=== PATIENT | female | born 1980 | race Caucasian/White ===

== ENCOUNTER 2022-06-17 09:10 | Emergency (ER) | payer OTHER ==
[2022-06-17] MEDS ORDERED: Aspirin 81 MG Tab.Chew PO ONE (09:37)
[2022-06-17] MEDS ORDERED: Sodium Chloride 0.9% 10 ML Syringe FLUSH PRN (09:37)
[2022-06-17 10:10] LABS: ANION GAP 8.5 meq/L (7-15); CHLORIDE,CL 102 mmol/L (98-107); SODIUM,NA 139 mmol/L (136-145)
[2022-06-17 10:13] LABS: ESTIMATED GFR 75 mL/min (>=60)
[2022-06-17] MEDS ORDERED: Meclizine 25 MG Tab PO ONE (10:16)
[2022-06-17] MEDS ORDERED: Sodium Chloride 0.9% 1,000 ML IV ONE (10:17)
[2022-06-17 11:53] LABS: CORONAVIRUS COVID-19 NAA NEGATIVE (NEGATIVE); RESPIRATORY SYNCYTIAL VIR NAA NEGATIVE (NEGATIVE)
== END 2022-06-17 12:35 | disposition home or self-care (01) ==
LOC: EDBD → LL.ED 09:10
DX: B34.9 Viral infection, unspecified (principal); J44.9 Chronic obstructive pulmonary disease, unspecified; Z79.899 Other long term (current) drug therapy; Z88.8 Allergy status to other drugs, medicaments and biological substances; Z20.822 Contact with and (suspected) exposure to COVID-19
CPT/HCPCS: 0241U; 36415; 71046; 80053; 81003; 82550; 83605; 83735; 84484; 85025; 85379; 85610; 93005; 93010; 99284; 99285; A9270-GY; J7030